=== PATIENT | male | born 1965 ===

== ENCOUNTER 2016-12-09 03:32 | Inpatient (IN) | payer MEDICAID ==
[2016-12-09] MEDS ORDERED: Multivitamin (MVI) 10 ML, Thiamine 100 MG, Folic Acid 1 MG in Sodium Chloride 0.9% 1,00... IV ONE (03:45)
--- NOTE | 2016-12-09 03:48 | C.PDOC ---
History Of Present Illness 51 year old male who presents to the ER with a complaint of palpitations and severe shakiness since approximately 21:00 last night. Patient has a Hx of ETOH abuse and reports he stopped drinking 2 days ago. Denies SOB, nausea, or vomiting. Chief Complaint (Nursing): Palpitations History Per: Patient History/Exam Limitations: no limitations Onset/Duration Of Symptoms: Hrs Current Symptoms Are (Timing): Still Present Associated Symptoms: denies: Chest Pain, Dyspnea, Dizziness, Blurred Vision, Focal Weakness, Headache Quality Of Symptoms: Rapid Heart Rate Recent travel outside of the [place] States: No Past Medical History Reviewed: Historical Data, Nursing Documentation, Vital Signs Vital Signs: Last Vital Signs Temp 98.0 F 12/09/16 03:38 Pulse 127 H 12/09/16 06:15 Resp 26 H 12/09/16 06:15 BP 157/99 H 12/09/16 06:15 Pulse Ox 99 12/09/16 06:23 - Medical History PMH: HTN, Hyperlipidemia Surgical History: Appendectomy - [facility] Procedures LAPAROSCOP APPENDECTOMY (10/14/13) Family History: States: Unknown Family Hx - Social History Hx Tobacco Use: No Hx Alcohol Use: Yes Hx Substance Use: No - Immunization History Hx Tetanus Toxoid Vaccination: No Hx Influenza Vaccination: Yes Hx Pneumococcal Vaccination: No Review Of Systems Constitutional: Negative for: Fever, Chills Cardiovascular: Positive for: Palpitations Respiratory: Negative for: Shortness of Breath Gastrointestinal: Negative for: Nausea, Vomiting Neurological: Positive for: Other (Tremulous) Physical Exam - Physical Exam Appears: Non-toxic, No Acute Distress, Agitated Skin: Normal Color, Warm, Dry Head: Atraumatic, Normacephalic Oral Mucosa: Moist Neck: Normal, Supple Chest: Symmetrical, No Tenderness Cardiovascular: Rhythm Regular (Tachycardic), No Murmur Respiratory: Normal Breath Sounds, No Rales, No Rhonchi, No Wheezing Gastrointestinal/Abdominal: Soft, No Tenderness Neurological/Psych: Oriented x3, Normal Speech, Normal Cognition ED Course And Treatment - Laboratory Results Result Diagrams: 12/09/16 03:55 12/09/16 03:55 ECG: Interpreted By Me, Viewed By Me ECG Rhythm: Sinus Tachycardia, R BBB ECG Interpretation: No Acute Changes, Abnormal Interpretation Of ECG: Sinus tachycardia, no acute changes, abnormal tracings. Rate From EC O2 Sat by Pulse Oximetry: 99 Pulse Ox Interpretation: Normal - Radiology CXR: Interpreted by Me, Viewed By Me CXR Interpretation: Yes: No Acute Disease, Other (normal chest film). No: Infiltrates, Cardiomegaly Progress Note: EKG, blood work, CXR, and urinalysis ordered. Ativan and IV fluids administered. Disposition Discussed With Dr.: Cheyenne Sandra Doctor Will See Patient In The: Hospital Counseled Patient/Family Regarding: Diagnosis - Disposition Disposition: HOSPITALIZED Disposition Time: 06:49 Condition: STABLE Forms: Scal[employer] (Irish) - POA Present On Arrival: None - Clinical Impression Clinical Impression: Alcohol withdrawal syndrome - Scribe Statement The provider has reviewed the documentation as recorded by the Scribremigio Morel All medical record entries made by the Scribe were at my direction and personally dictated by me. I have reviewed the chart and agree that the record accurately reflects my personal performance of the history, physical exam, medical decision making, and the department course for this patient. I have also personally directed, reviewed, and agree with the discharge instructions and disposition.
[2016-12-09 04:01] LABS: MEAN CORPUSCULAR HGB CONC 35.8 g/dL (33.0-37.0); MONO # 1.5 K/uL (0.0-0.8)
[2016-12-09 04:09] LABS: BASO % 0.1 % (0.0-2.0); HEMATOCRIT 48.2 % (35.0-51.0); LYMPH # 1.4 K/uL (1.0-4.3); LYMPH % 8.2 % (20.0-40.0); MEAN CELL VOLUME 97.1 fL (80.0-94.0); MEAN CORPUSCULAR HEMOGLOBIN 34.8 pg (27.0-31.0); MEAN PLATELET VOLUME 8.8 fL (7.2-11.7); MONO % 8.8 % (0.0-10.0); NRBC % 0.1 % (0.0-2.0); PLATELET COUNT 389 K/uL (130-400); RED CELL DISTRIBUTION WIDTH 14.5 % (11.5-14.5); WHITE BLOOD COUNT 17.4 K/uL (4.8-10.8)
[2016-12-09 04:14] LABS: ALCOHOL SERUM < 10 mg/dl (0-10); ALKALINE PHOSPHATASE 133 U/L (38-126); ALT/SGPT 66 U/L (21-72); AST/SGOT 83 U/L (17-59); BLOOD UREA NITROGEN 19 mg/dL (9-20); CHLORIDE 102 mmol/L (98-107); GFR AFRICAN-AMERICAN > 60; GLUCOSE,RANDOM 128 mg/dL (75-110); INR 1.1; POTASSIUM 4.2 mmol/L (3.6-5.2); SODIUM 136 mmol/L (132-148); TOTAL PROTEIN 7.9 g/dL (6.3-8.3)
[2016-12-09 04:32] LABS: CARBON DIOXIDE 9 mmol/L (22-30)
[2016-12-09 04:33] LABS: BILIRUBIN,TOTAL 1.6 mg/dL (0.2-1.3)
[2016-12-09] MEDS ORDERED: Dextrose 5%/0.9% NS 1,000 ML IV ONE ×2 (04:36→04:59)
[2016-12-09] MEDS ORDERED: Sodium Chloride 0.9% 0 ML ONE (04:58)
[2016-12-09 05:15] LABS: GRANULAR CAST 6 /lpf (0-1); RBC URINE < 1 /hpf (0-3); URINE BILIRUBIN NEGATIVE (NEGATIVE); URINE BLOOD NEGATIVE (NEGATIVE); URINE COLOR Amber (YELLOW); URINE GLUCOSE (UA) NORMAL (Normal); URINE KETONE 1+ mg/dL (NEGATIVE); URINE LEUKOCYTE ESTERASE NEG Leu/uL (Negative); URINE PROTEIN 1+ mg/dL (NEGATIVE); URINE UROBILINOGEN NORMAL mg/dL (0.2-1.0); WBC URINE 1 /hpf (0-5)
[2016-12-09 05:27] LABS: NEUTROPHIL 83 % (50-75); TOTAL CELLS COUNTED 100
[2016-12-09 05:33] LABS: ABG ALLEN TEST POS; ARTERIAL BLOOD HGB O2 SAT 91.3 % (95.0-98.0); CARBOXYHEMOGLOBIN 0 % (0.5-1.5); DRAW SITE R RAD; HHB 3.8 % (0.0-5.0); METHEMOGLOBIN 4.8 % (0.0-3.0)
[2016-12-09] MEDS ORDERED: Folic Acid 1 MG, Thiamine 100 MG, Multivitamin (MVI) 10 ML in Dextrose 5% In Water 1,00... IV SCH (07:15)
[2016-12-09] MEDS ORDERED: Iodixanol 320 MG/ML 100 ML BOTTLE IV ONE (07:50)
--- NOTE | 2016-12-09 08:16 | RAD ---
PROCEDURE: CHEST RADIOGRAPH, 1 VIEW HISTORY: Palpitations COMPARISON: None available. FINDINGS: LUNGS: Mild venous congestion. Right hilar prominence. Biapical pleural thickening with upper lobe granulomatous changes. PLEURA: No pneumothorax or pleural fluid seen. CARDIOVASCULAR: Normal. OSSEOUS STRUCTURES: No significant abnormalities. VISUALIZED UPPER ABDOMEN: Normal. OTHER FINDINGS: None. IMPRESSION: Mild venous congestion. Right hilar prominence. Biapical pleural thickening with upper lobe granulomatous changes.
--- NOTE | 2016-12-09 09:11 | CT ---
PROCEDURE: CT Chest with contrast (Pulmonary Angiogram) HISTORY: palpitation,chest discomfort COMPARISON: None available. TECHNIQUE: Axial computed tomography images were obtained of the chest in the pulmonary arterial phase of enhancement. Coronal and sagittal reformatted images were created and reviewed. Intravenous contrast dose: 100 cc of Visipaque Radiation dose: Total exam DLP = 402 mGy-cm. This CT exam was performed using one or more of the following dose reduction techniques: Automated exposure control, adjustment of the mA and/or kV according to patient size, and/or use of iterative reconstruction technique. FINDINGS: PULMONARY ARTERIES: Unremarkable. No pulmonary embolism. AORTA: No acute findings. No thoracic aortic aneurysm. LUNGS: Unremarkable. No nodule, mass or pulmonary consolidation. PLEURAL SPACES: Unremarkable. No effusion or pneuomothorax. HEART: Unremarkable. No cardiomegaly. No significant pericardial effusion. LYMPH NODES: No lymphadenopathy. BONES, CHEST WALL: Unremarkable. No fracture or destructive lesion OTHER FINDINGS: Unremarkable. IMPRESSION: Unremarkable CT pulmonary angiogram. No pulmonary embolus.
[2016-12-09] MEDS: Pantoprazole 40 mg EC Tab PO SCH (09:28)
[2016-12-09] MEDS: Enoxaparin 40 mg Syringe SC SCH (09:28)
[2016-12-09] MEDS ORDERED: Folic Acid 1 MG, Thiamine 100 MG, Multivitamin (MVI) 10 ML in Dextrose 5% In Water 1,00... IV ONE (11:15)
[2016-12-09] MEDS ORDERED: Multiple Vitamins Tab PO SCH (12:15)
--- NOTE | 2016-12-09 13:54 | PCM.PSYCH ---
Initial Psychiatric Evaluation - Initial Psychiatric Evaluation Type of Admission: Voluntary Legal Status: Capacity Chief Complaint (in patient's own words): Psych consult called for hx of alcohol use History of Present Illness and Precipitating Events: Patient is a 50 year old male, single with no children, who lives alone in [place] and works as a sales associate cashier at [employer]. Consult was requested for his alcohol wdw He states that he came to the hospital because he was drinking alcohol 2 days ago, and yesterday experienced shakes, vomiting, chest pain, heavy breathing, and wasn't able to sleep. He wasn't able to take his blood pressure medication so he was worried he would have a stroke, and thus came to the hospital. Patient states that he drinks on and off. Two days ago, he had 4 "vodka juices" and a couple of beers. He states that sometimes he drinks, gives it up and then starts drinking again. He feels that he has the ability to stop and states that he once stopped for 2 weeks. However he also fulfills criteria for alcohol use d /o. Patient has never been to detox or rehab in the past. He denies use of drugs or tobacco. Patient states that he's recently been experiencing stress at his job because his hours are being cut and he's looking for another job elsewhere. Additionally , he states that his boyfriend of 2 years was deported in July. Patient states that his boyfriend left voluntarily and gave us his passport. They still speak via phone and Facetime and he states that his boyfriend is attempting to come back to the country, but the future is unknown. He feels anxious. Psychiatric history: denies Drugs: denies Tobacco: denies ETOH: see above Medical history: HTN hypercholesterolemia Family history: no psych illnesses or substance use Social: Single, boyfriend of 2 years now lives out of country No children Lives alone in [place] Works as sales associate cashier at [employer] Current Medications: Active Medications Generic Name Dose Route Start Last Admin Trade Name Freq PRN Reason Stop Dose Admin Chlordiazepoxide 25 mg 12/09/16 12:15 Librium PO Q4H PRN Alcohol Withdrawal Chlordiazepoxide 0 mg 12/09/16 18:00 Librium PO 12/13/16 17:59 Q6 ADRIA Taper Enoxaparin Sodium 40 mg 12/09/16 10:00 12/09/16 09:28 Lovenox SC 40 mg DAILY ADRIA Administration Folic Acid 1 mg 12/10/16 10:00 Folic Acid PO DAILY ADRIA Folic Acid 1 mg/ Thiamine HCl 1,011.2 mls @ 60 mls/hr 12/09/16 11:15 100 mg/ Multivitamins/Vitamin IV 12/10/16 04:06 C 10 ml/ Dextrose .[id number] Multivitamins 1 tab 12/10/16 10:00 Hexavitamin PO DAILY ADRIA Pantoprazole Sodium 40 mg 12/09/16 10:00 12/09/16 09:28 Protonix Ec Tab PO 40 mg DAILY ADRIA Administration Thiamine HCl 100 mg 12/10/16 10:00 Vitamin B1 Tab PO DAILY ADRIA Trazodone HCl 50 mg 12/09/16 12:15 Desyrel PO HS PRN Insomnia Past Psychiatric History - Past Psychiatric History Pertinent Medical Hx (Current Medical&Sleep Prob, Allergies): Allergies Allergy/AdvReac Type Severity Reaction Status Date / Time Penicillins Allergy RASH Verified 12/09/16 03:42 Losartan 50 mg PO DAILY 07/08/15 Hydrochlorothiazide [Microzide] 12.5 mg PO DAILY 12/09/16 Pravastatin Sodium [Pravachol] 20 mg PO HS 12/09/16 Review of Systems - Neurological Neurological: UNREMARKABLE - Psychiatric Psychiatric: Abnormal Sleep Pattern, Anxiety Mental Status Examination - Personal Presentation Personal Presentation: Looks stated age - Affect Affect: Constricted - Motor Activity Motor Activity: Calm - Speech Speech: Organized - Mood Mood: Depressed, Anxious - Formal Thought Process Formal Thought Process: No Impairment - Obsessions/Compulsions Obsessions: No Compulsions: No - Cognitive Functions Orientation: Person, Place, Situation, Time Sensorium: Alert - Risk Risk: Seizure, Withdrawal - Strength & Assets Inventory Strength & Assets Inventory: Employment status, Cooperative DSM 5 DX - DSM 5 DSM 5 Diagnosis: Alcohol use d/o - moderate Alcohol withdrawal r/o anxiety d/o - Recommended/Plan of Treatment Treatment Recommendations and Plan of Treatment: Alcohol use disorder CBT and [place] psychoeducation supportive therapy, individual therapy Alcohol withdrawal Librium 25mg PO Q4H PRN Librium taper gabapentin 33 min
[2016-12-09 16:59] LABS: CHLORIDE 105 mmol/L (98-107); SODIUM 133 mmol/L (132-148)
[2016-12-09 17:00] LABS: POTASSIUM 3.7 mmol/L (3.6-5.2)
[2016-12-09 17:02] LABS: ALKALINE PHOSPHATASE 85 U/L (38-126); AST/SGOT 101 U/L (17-59); BILIRUBIN,TOTAL 1.5 mg/dL (0.2-1.3); BLOOD UREA NITROGEN 14 mg/dL (9-20); CARBON DIOXIDE 18 mmol/L (22-30); GFR AFRICAN-AMERICAN > 60; TOTAL PROTEIN 6.1 g/dL (6.3-8.3)
[2016-12-09 17:03] LABS: ALB/GLOB RATIO 1.3 (1.0-2.1); ALT/SGPT 56 U/L (21-72); CALCIUM 7.7 mg/dl (8.6-10.4); GLUCOSE,RANDOM 109 mg/dL (75-110)
--- NOTE | 2016-12-09 21:11 | CP.PCM.HP ---
Past Patient History - Infectious Disease Hx of Infectious Diseases: None - Past Medical History & Family History Past Medical History?: No - Past Social History Smoking Status: Never Smoked - CARDIAC Hx Hypertension: Yes - PULMONARY Hx Respiratory Disorders: No - NEUROLOGICAL Hx Neurological Disorder: No - HEENT Hx HEENT Problems: No - RENAL Hx Chronic Kidney Disease: No - ENDOCRINE/METABOLIC Hx Endocrine Disorders: No - HEMATOLOGICAL/ONCOLOGICAL Hx Blood Disorders: No - INTEGUMENTARY Hx Dermatological Problems: No - MUSCULOSKELETAL/RHEUMATOLOGICAL Hx Musculoskeletal Disorders: No Hx Falls: Yes - GASTROINTESTINAL Hx Gastrointestinal Disorders: No - GENITOURINARY/GYNECOLOGICAL Hx Genitourinary Disorders: No - PSYCHIATRIC Hx Substance Use: No - SURGICAL HISTORY Hx Appendectomy: Yes - ANESTHESIA Hx Anesthesia: Yes Hx Anesthesia Reactions: No Hx Malignant Hyperthermia: No Meds Allergies/Adverse Reactions: Allergies Allergy/AdvReac Type Severity Reaction Status Date / Time Penicillins Allergy RASH Verified 12/09/16 03:42 Physical Exam - Constitutional Appears: Well - Head Exam Head Exam: ATRAUMATIC, NORMAL INSPECTION, NORMOCEPHALIC - Eye Exam Eye Exam: EOMI, Normal appearance, PERRL Pupil Exam: NORMAL ACCOMODATION, PERRL - ENT Exam ENT Exam: Mucous Membranes Moist, Normal Exam - Neck Exam Neck exam: Positive for: Normal Inspection - Respiratory Exam Respiratory Exam: Decreased Breath Sounds - Cardiovascular Exam Cardiovascular Exam: REGULAR RHYTHM, +S1, +S2 - GI/Abdominal Exam GI & Abdominal Exam: Diminished Bowel Sounds, Soft - Rectal Exam Rectal Exam: Deferred Results - Vital Signs Recent Vital Signs: Last Vital Signs Temp 97.8 F 12/09/16 15:49 Pulse 90 12/09/16 16:00 Resp 18 12/09/16 15:49 BP 127/77 12/09/16 15:49 Pulse Ox 97 12/09/16 15:49 - Labs Result Diagrams: 12/09/16 03:55 12/09/16 16:33 Labs: Laboratory Results - last 24 hr 12/09/16 16:33 Sodium 133 Potassium 3.7 Chloride 105 Carbon Dioxide 18 L Anion Gap 14 BUN 14 Creatinine 0.9 Est GFR ( Amer) > 60 Est GFR (Non-Af Amer) > 60 Random Glucose 109 Calcium 7.7 L Total Bilirubin 1.5 H AST 101 H D ALT 56 Alkaline Phosphatase 85 Total Protein 6.1 L Albumin 3.4 L Globulin 2.7 Albumin/Globulin Ratio 1.3
[2016-12-10] MEDS: Multiple Vitamins Tab PO SCH (10:16)
[2016-12-10] MEDS: Pantoprazole 40 mg EC Tab PO SCH (10:16)
[2016-12-10] MEDS: Enoxaparin 40 mg Syringe SC SCH (10:16)
--- NOTE | 2016-12-10 13:20 | CARD ---
APPROVED REPORT EKG Measurement Heart [id number] <Conclusion> Sinus tachycardia Possible Left atrial enlargement Right superior axis deviation Incomplete right bundle branch block Right ventricular hypertrophy Abnormal ECG
[2016-12-10 17:16] LABS: ALB/GLOB RATIO 1.1 (1.0-2.1); ALKALINE PHOSPHATASE 71 U/L (38-126); ALT/SGPT 61 U/L (21-72); AST/SGOT 89 U/L (17-59); BILIRUBIN,TOTAL 1.1 mg/dL (0.2-1.3); BLOOD UREA NITROGEN 10 mg/dL (9-20); CALCIUM 8.2 mg/dl (8.6-10.4); CARBON DIOXIDE 23 mmol/L (22-30); CHLORIDE 103 mmol/L (98-107); GFR AFRICAN-AMERICAN > 60; GLUCOSE,RANDOM 90 mg/dL (75-110); MAGNESIUM 1.9 mg/dL (1.6-2.3); POTASSIUM 3.6 mmol/L (3.6-5.2); SODIUM 136 mmol/L (132-148); TOTAL PROTEIN 5.8 g/dL (6.3-8.3)
--- NOTE | 2016-12-10 18:53 | CP.PCM.PN ---
Subjective - Date & Time of Evaluation Date of Evaluation: 12/10/16 Time of Evaluation: 10:20 - Subjective Subjective: clinically same Objective - Vital Signs/Intake and Output Vital Signs (last 24 hours): Temp Pulse Resp BP Pulse Ox 97.9 F 61 20 133/79 95 12/10/16 15:15 12/10/16 15:15 12/10/16 15:15 12/10/16 15:15 12/10/16 15:15 Intake and Output: 12/10/16 12/10/16 06:59 18:59 Intake Total 320 870 Output Total 600 Balance -280 870 - Medications Medications: Current Medications Chlordiazepoxide (Librium) 25 mg PO Q4H PRN PRN Reason: Alcohol Withdrawal Last Admin: 12/09/16 14:21 Dose: 25 mg Chlordiazepoxide (Librium) 25 mg PO TID [facility] PRN Reason: Taper Stop: 12/13/16 17:59 Last Admin: 12/10/16 17:52 Dose: 25 mg Enoxaparin Sodium (Lovenox) 40 mg SC DAILY [facility] Last Admin: 12/10/16 10:16 Dose: 40 mg Folic Acid (Folic Acid) 1 mg PO DAILY [facility] Last Admin: 12/10/16 10:16 Dose: 1 mg Gabapentin (Neurontin) 100 mg PO TID [facility] Last Admin: 12/10/16 13:35 Dose: 100 mg Multivitamins (Hexavitamin) 1 tab PO DAILY [facility] Last Admin: 12/10/16 10:16 Dose: 1 tab Pantoprazole Sodium (Protonix Ec Tab) 40 mg PO DAILY [facility] Last Admin: 12/10/16 10:16 Dose: 40 mg Pneumococcal Polyvalent Vaccine (Pneumovax 23 Vaccine) 0.5 ml IM .ONCE ONE Stop: 12/11/16 10:01 Thiamine HCl (Vitamin B1 Tab) 100 mg PO DAILY [facility] Last Admin: 12/10/16 10:16 Dose: 100 mg Trazodone HCl (Desyrel) 50 mg PO HS PRN PRN Reason: Insomnia - Labs Labs: 12/10/16 17:00 PT 12.0 SECONDS (9.7-12.2) 12/09/16 03:55 INR 1.1 12/09/16 03:55 APTT 34 SECONDS (21-34) 12/09/16 03:55
[2016-12-11 08:08] LABS: BASO % 0.7 % (0.0-2.0); EOS % 1.4 % (0.0-4.0); HEMATOCRIT 39.2 % (35.0-51.0); LYMPH # 0.8 K/uL (1.0-4.3); LYMPH % 25.1 % (20.0-40.0); MEAN CELL VOLUME 96.3 fL (80.0-94.0); MEAN CORPUSCULAR HEMOGLOBIN 32.9 pg (27.0-31.0); MEAN CORPUSCULAR HGB CONC 34.2 g/dL (33.0-37.0); MEAN PLATELET VOLUME 8.4 fL (7.2-11.7); MONO # 0.4 K/uL (0.0-0.8); MONO % 11.9 % (0.0-10.0); NRBC % 0.3 % (0.0-2.0)
[2016-12-11 08:10] LABS: CHLORIDE 107 mmol/L (98-107); POTASSIUM 3.5 mmol/L (3.6-5.2); SODIUM 139 mmol/L (132-148); WHITE BLOOD COUNT 3.3 K/uL (4.8-10.8)
[2016-12-11 08:12] LABS: ALB/GLOB RATIO 1.2 (1.0-2.1); AST/SGOT 84 U/L (17-59); BILIRUBIN,TOTAL 0.9 mg/dL (0.2-1.3); BLOOD UREA NITROGEN 10 mg/dL (9-20); CARBON DIOXIDE 24 mmol/L (22-30); GFR AFRICAN-AMERICAN > 60
[2016-12-11 08:13] LABS: ALKALINE PHOSPHATASE 72 U/L (38-126); ALT/SGPT 68 U/L (21-72); CALCIUM 7.9 mg/dl (8.6-10.4); GLUCOSE,RANDOM 77 mg/dL (75-110)
[2016-12-11] MEDS ORDERED: Pneumococcal 23-Valent Vaccine IM ONE (10:00)
[2016-12-11] MEDS: Multiple Vitamins Tab PO SCH (10:44)
[2016-12-11] MEDS: Enoxaparin 40 mg Syringe SC SCH (10:44)
[2016-12-11] MEDS: Pantoprazole 40 mg EC Tab PO SCH (10:44)
--- NOTE | 2016-12-11 11:44 | CP.PCM.PN ---
<Neto Garcia - Last Filed: 12/11/16 11:44> Subjective - Date & Time of Evaluation Date of Evaluation: 12/11/16 Time of Evaluation: 11:45 - Subjective Subjective: Progress note. Attending: Dr. Sandra Pt seen and examined at bedside. No acute distress. No current complaints. Denies fevers, chills, vomiting, diarrhea. Pt is hemodynamically stable. Objective - Vital Signs/Intake and Output Vital Signs (last 24 hours): Temp Pulse Resp BP Pulse Ox 98 F 47 L 18 131/82 96 12/11/16 08:00 12/11/16 08:00 12/11/16 08:00 12/11/16 08:00 12/11/16 08:00 - Medications Medications: Current Medications Chlordiazepoxide (Librium) 25 mg PO Q4H PRN PRN Reason: Alcohol Withdrawal Last Admin: 12/09/16 14:21 Dose: 25 mg Chlordiazepoxide (Librium) 25 mg PO TID [facility] PRN Reason: Taper Stop: 12/13/16 17:59 Last Admin: 12/11/16 10:44 Dose: 25 mg Enoxaparin Sodium (Lovenox) 40 mg SC DAILY [facility] Last Admin: 12/11/16 10:44 Dose: 40 mg Folic Acid (Folic Acid) 1 mg PO DAILY [facility] Last Admin: 12/11/16 10:44 Dose: 1 mg Gabapentin (Neurontin) 100 mg PO TID [facility] Last Admin: 12/11/16 10:44 Dose: 100 mg Potassium Chloride (Potassium Chloride 20 Meq/100 Ml) 20 meq in 100 mls @ 50 mls/hr IVPB ONCE ONE Stop: 12/11/16 12:47 Multivitamins (Hexavitamin) 1 tab PO DAILY [facility] Last Admin: 12/11/16 10:44 Dose: 1 tab Pantoprazole Sodium (Protonix Ec Tab) 40 mg PO DAILY [facility] Last Admin: 12/11/16 10:44 Dose: 40 mg Thiamine HCl (Vitamin B1 Tab) 100 mg PO DAILY [facility] Last Admin: 12/11/16 10:44 Dose: 100 mg Trazodone HCl (Desyrel) 50 mg PO HS PRN PRN Reason: Insomnia - Labs Labs: 12/11/16 07:42 12/11/16 07:42 PT 12.0 SECONDS (9.7-12.2) 12/09/16 03:55 INR 1.1 12/09/16 03:55 APTT 34 SECONDS (21-34) 12/09/16 03:55 - Constitutional Appears: Non-toxic, No Acute Distress - Head Exam Head Exam: ATRAUMATIC, NORMAL INSPECTION, NORMOCEPHALIC - Eye Exam Eye Exam: EOMI - ENT Exam ENT Exam: Mucous Membranes Moist - Neck Exam Neck Exam: Full ROM, Normal Inspection - Respiratory Exam Respiratory Exam: NORMAL BREATHING PATTERN. absent: Respiratory Distress - Cardiovascular Exam Cardiovascular Exam: +S1, +S2 - GI/Abdominal Exam GI & Abdominal Exam: Soft, Normal Bowel Sounds. absent: Tenderness - Extremities Exam Extremities Exam: Full ROM, Normal Inspection - Back Exam Back Exam: NORMAL INSPECTION - Neurological Exam Neurological Exam: Alert, Awake, CN II-XII Intact, Oriented x3 - Psychiatric Exam Psychiatric exam: Normal Affect, Normal Mood - Skin Skin Exam: Dry, Intact, Normal Color, Warm Assessment and Plan - Assessment and Plan (Free Text) Assessment: This is a 51 yo male with past medical hx of alcohol abuse, HTN, and HLD presenting for alcohol withdrawal 1. Alcohol abuse/withdrawal -librium 25 PO q 4 PRN -librium 25 PO TID ADRIA -folic acid 1 mg po daily -gabapentin 100 po tid -continue multivitamins -thiamine 100 daily 2. Insomnia -continue trazodone PO HS 3. Hx of HTN -continue to monitor -blood pressure well controlled at present 4. Hx of HLD -continue to monitor 5. GI/DVT ppx -lovenox daily -protonix daily discussed with Dr. Sandra <Eula Sandra S - Last Filed: 12/11/16 23:47> Objective - Vital Signs/Intake and Output Vital Signs (last 24 hours): Temp Pulse Resp BP Pulse Ox 97.9 F 61 20 123/82 95 12/11/16 15:49 12/11/16 15:49 12/11/16 15:49 12/11/16 15:49 12/11/16 15:49 Intake and Output: 12/11/16 12/12/16 18:59 06:59 Intake Total 700 Balance 700 - Labs Labs: 12/11/16 07:42 12/11/16 07:42 PT 12.0 SECONDS (9.7-12.2) 12/09/16 03:55 INR 1.1 12/09/16 03:55 APTT 34 SECONDS (21-34) 12/09/16 03:55 Attending/Attestation - Attestation I have personally seen and examined this patient.: Yes I have fully participated in the care of the patient.: Yes I have reviewed all pertinent clinical information, including history, physical exam and plan: Yes Notes (Text): 12/11/16 23:46 Patient is okay patient is not in delirium tremens patient is to be discharged on thiamine MVI gabapentin continue her trazodone from the home patient for the discharge patient advised to drink orange juice as potassium was on the lower side patient agreed and willing to go home Patient seen and discussed with the staff and the resident
--- NOTE | 2016-12-11 15:32 | PCM.PYCHPN ---
Psychiatric Progress Note - Psychiatric Progress Note Patient seen today, length of contact: 15 minutes Patient Chief Complaint: "I'm doing good" Problems Identified/Issues Discussed: The patient was seen, chart reviewed, case discussed with staff. The patient is compliant with medications and reports no side effects. Patient states that he's been sleeping well. He denies withdrawal symptoms including shakes, sweats and pain. No new symptoms, patient is improving. After care discussed, support and psychoeducation given. Medication Change: Yes (detox changes daily) Medical Record Reviewed: Yes Mental Status Examination - Cognitive Function Orientation: Person, Place, Situation, Time Memory: Intact Attention: WNL Concentration: WNL Association: WNL Fund of Knowledge: WNL - Mood Mood: Anxious - Affect Affect: Constricted - Speech Speech: Soft - Formal Thought Process Formal Thought Process: No Impairment - Suicidal Ideation Suicidal Ideation: No - Homicidal Ideation Homicidal Ideation: No Goal/Treatment Plan - Goal/Treatment Plan Progress Toward Problem(s) and Goals/Treatment Plan: Alcohol use disorder CBT and [place] psychoeducation supportive therapy, individual therapy Alcohol withdrawal Librium 25mg PO Q4H PRN Librium taper gabapentin
[2016-12-11 15:52] VITALS: BP 123/82; PULSE 61; RESP 20; TEMP 97.9; O2SAT 95
== END 2016-12-11 17:59 | disposition home or self-care (01) | DRG 751 ==
LOC: C.ER 03:32 → C.9E 06:50 → C.5S 07:27
PROVIDERS: ADMIT Internal Medicine Nephrology; ATTEND Internal Medicine Nephrology
DX: F10.230 Alcohol dependence with withdrawal, uncomplicated (principal); I10 Essential (primary) hypertension; R00.2 Palpitations; E78.5 Hyperlipidemia, unspecified; G47.00 Insomnia, unspecified; F41.9 Anxiety disorder, unspecified; Z90.49 Acquired absence of other specified parts of digestive tract; Z91.81 History of falling

== ENCOUNTER 2017-04-08 14:20 | Inpatient (IN) | payer MEDICAID ==
[2017-04-08 14:29] VITALS: BMI 26.6
--- NOTE | 2017-04-08 14:42 | C.PDOC ---
History Of Present Illness 51 y/o male with PMHx of high cholesterol presents to ED requesting ETOH detox. Patient states his last drink was yesterday at 4pm in the afternoon and reports he has tried to detox on his own but cannot secondary to feeling nauseous and shaking sensation. Patient states he is compliant with medication and denies current chest pain, sob, vomiting, headache or any other complaints at this at this time. Time Seen by Provider: 04/08/17 14:30 Chief Complaint (Nursing): Substance Abuse History Per: Patient History/Exam Limitations: no limitations Onset/Duration Of Symptoms: Days Current Symptoms Are (Timing): Still Present Suicide/Self Injury Attempted (Context): None Modifying Factor(s): Alcohol Past Medical History Reviewed: Historical Data, Nursing Documentation, Vital Signs Vital Signs: Last Vital Signs Temp 98.2 F 04/08/17 14:29 Pulse 119 H 04/08/17 14:29 Resp 18 04/08/17 14:29 BP 95/66 L 04/08/17 14:29 Pulse Ox 98 04/08/17 16:32 - Medical History PMH: Depression, HTN, Hypercholesterolemia, Hyperlipidemia Surgical History: Appendectomy - [facility] Procedures LAPAROSCOP APPENDECTOMY (10/14/13) Family History: States: No Known Family Hx - Social History Hx Tobacco Use: No Hx Alcohol Use: Yes Hx Substance Use: No - Immunization History Hx Tetanus Toxoid Vaccination: Yes Hx Influenza Vaccination: Yes Hx Pneumococcal Vaccination: Yes Review Of Systems Constitutional: Negative for: Fever, Chills Eyes: Negative for: Vision Change Cardiovascular: Negative for: Chest Pain Respiratory: Negative for: Shortness of Breath Gastrointestinal: Negative for: Nausea, Vomiting Skin: Negative for: Rash Psych: Negative for: Anxiety, Withdrawal Physical Exam - Physical Exam Appears: Non-toxic, No Acute Distress Skin: Normal Color, Warm, Dry, No Rash Head: Atraumatic, Normacephalic Eye(s): bilateral: Normal Inspection Oral Mucosa: Moist Neck: Normal ROM, Supple Cardiovascular: Rhythm Regular Respiratory: Normal Breath Sounds, No Rales, No Rhonchi, No Wheezing Gastrointestinal/Abdominal: Soft, No Tenderness, No Guarding, No Rebound Back: No CVA Tenderness Extremity: Normal ROM, Capillary Refill (<2 seconds) Neurological/Psych: Oriented x3 ED Course And Treatment - Laboratory Results Result Diagrams: 04/08/17 15:58 04/08/17 15:58 Lab Interpretation: No Acute Changes Interpretation Of Abnormal: K+ 2.8 corrected with oral Kdur. ECG: Interpreted By Me ECG Rhythm: Sinus Rhythm ECG Interpretation: No Acute Changes O2 Sat by Pulse Oximetry: 98 (RA) Pulse Ox Interpretation: Normal Progress Note: Patient is medically cleared for detox admisison. Medical Decision Making Medical Decision Making: Progress: Patient is pre screened for detox Disposition - Disposition Disposition: HOSPITALIZED Disposition Time: 17:21 Condition: STABLE - POA Present On Arrival: None - Clinical Impression Clinical Impression: Alcohol dependence - Scribe Statement The provider has reviewed the documentation as recorded by the Scribe Alexandra Briones All medical record entries made by the Emmieibe were at my direction and personally dictated by me. I have reviewed the chart and agree that the record accurately reflects my personal performance of the history, physical exam, medical decision making, and the department course for this patient. I have also personally directed, reviewed, and agree with the discharge instructions and disposition.
[2017-04-08 16:02] LABS: BASO % 0.4 % (0.0-2.0); EOS # 0.1 K/uL (0.0-0.7); EOS % 1.5 % (0.0-4.0); HEMOGLOBIN 14.2 g/dL (12.0-18.0); LYMPH % 21.2 % (20.0-40.0); MEAN CELL VOLUME 90.6 fL (80.0-94.0); MEAN CORPUSCULAR HEMOGLOBIN 31.3 pg (27.0-31.0); MEAN CORPUSCULAR HGB CONC 34.6 g/dL (33.0-37.0); MEAN PLATELET VOLUME 7.9 fL (7.2-11.7); MONO # 0.4 K/uL (0.0-0.8); MONO % 9.3 % (0.0-10.0); NEUT # 3.2 K/uL (1.8-7.0); NEUT % 67.6 % (50.0-75.0); RBC 4.53 Mil/uL (4.40-5.90); RED CELL DISTRIBUTION WIDTH 15.4 % (11.5-14.5); WHITE BLOOD COUNT 4.7 K/uL (4.8-10.8)
[2017-04-08 16:11] LABS: URINE BACTERIA RARE (<OCC); URINE BILIRUBIN NEGATIVE (NEGATIVE); URINE BLOOD NEGATIVE (NEGATIVE); URINE CLARITY Clear (Clear); URINE COLOR Yellow (YELLOW); URINE GLUCOSE (UA) NORMAL (Normal); URINE LEUKOCYTE ESTERASE NEG Leu/uL (Negative); URINE NITRATE NEGATIVE (NEGATIVE); URINE PROTEIN NEGATIVE (NEGATIVE); URINE UROBILINOGEN NORMAL mg/dL (0.2-1.0)
[2017-04-08 16:17] LABS: ALB/GLOB RATIO 1.2 (1.0-2.1); ALBUMIN 4.1 g/dL (3.5-5.0); ALT/SGPT 46 U/L (21-72); AST/SGOT 79 U/L (17-59); BLOOD UREA NITROGEN 14 mg/dL (9-20); GFR AFRICAN-AMERICAN > 60; GFR NON-AFRICAN AMERICAN > 60
[2017-04-08] MEDS ORDERED: Potassium Chloride 20 mEq ER Tab PO STA (16:25)
[2017-04-08 16:28] LABS: BARBITURATES, UR NEGATIVE (NEGATIVE); BENZODIAZEPINES, UR NEGATIVE (NEGATIVE); OPIATES, UR NEGATIVE (NEGATIVE); PHENCYCLIDINE, UR NEGATIVE (NEGATIVE)
[2017-04-08] MEDS ORDERED: Potassium Chloride 20 mEq ER Tab PO ONE ×2 (16:45→20:00)
--- NOTE | 2017-04-08 18:37 | PCM.BM ---
<Ayesha Mccollum - Last Filed: 04/08/17 18:35> Treatment Plan Problems - Problems identified on initial assessmt Alcohol abuse Date Initiated: 04/08/17 Time Initiated: 18:30 Assessment reference: NA Status: Active Treatment assets and liabiliti Patient Assests: cooperative, ADL independent, good support system Patient Liabilities: substance abuse - Milieu Protocol Maintain good personal hygiene: daily Encourage regular showers, daily Remind patient to perform daily oral care, daily Assist patient to perform ADL's Conduct patient checks and document Observation sheet: Q15 minutes Maintain personal safety: every shift Educate patient to report safety concerns to staff, every shift Monitor environment for contraband/sharps Medication safety: Monitor for expected outcome, potential side effects: every shift, Assess barriers to learning: every shift, Assess readiness for medication education: every shift <Ria Veras - Last Filed: 04/09/17 13:44> Family Contact Family involvement: Famliy/SO not involved Family contact: Patient declines to allow family contact at present - Goals for Treatment Patient goals for treatment: Complete detox and attend o/p in [place] while resuming employment at [employer]. Discharge/Continuing Care - Education Needs Education Needs: Patient Medication, Patient Diagnosis/Disease Process, Patient Coping Skills, Patient Anger Management skills, Patient Placement options, Patient Community resources - Discharge Discharge Criteria: No longer exhibiting s/s of withdrawal, Reduction of target symptoms Discharge to:: Home - Treatment Team Participation Patient/Family/SO Statement: 04/09/17 13:45 "I wanna go to outpatient." Discussed with Family/SO: No Was Patient/Family/SO present at Treatment Team Meeting: Yes <Maris Gunderson - Last Filed: 04/10/17 14:46> - Diagnosis (1) Alcohol dependence Status: Acute Interventions: 04/10/17 14:46 * Assess 7x/week regarding severity of withdrawal * Educate regarding risks, benefits, side effects and alternatives of medications * Use Motivational Interviewing for abstinence * Use CBT for relapse prevention * Medication management for withdrawal symptoms * Encourage medication assisted treatment *
[2017-04-09] MEDS: Multiple Vitamins Tab PO SCH (09:27)
--- NOTE | 2017-04-09 13:39 | PCM.PSYCH ---
Initial Psychiatric Evaluation - Initial Psychiatric Evaluation Type of Admission: Voluntary Legal Status: Capacity Chief Complaint (in patient's own words): "I want to detox from alcohol " History of Present Illness and Precipitating Events: The pt seen, chart reviewed, case discussed with staff Patient is a 51 year old male. He is single with no children and has no contact with his family. Patient states he currently lives alone. 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 Patient was admitted to detox for alcohol use. Patient states he consumes 5-6 "vodka with juice" drinks daily. This volume began over the past year. Patient reports he noticed a problem with drinking during his early 40s. He states this is his first time at a detox program and wants to get clean. He states he has tried on his own but the withdrawal symptoms are too much for him to handle. He denies any legal issues at this time. His plan after detox is to enter an outpatient program in [place]. Psych Hx: Denies Family Psych Hx: Denies PMH: HTN and hyperlipidemia Current Medications: Active Medications Generic Name Dose Route Start Last Admin Trade Name Gaby PRN Reason Stop Dose Admin Chlordiazepoxide 25 mg 04/09/17 00:00 04/09/17 13:04 Librium PO 04/12/17 23:59 25 mg Q6 ADRIA Administration Taper Chlordiazepoxide 25 mg 04/08/17 20:26 04/09/17 09:30 Librium PO 25 mg Q4H PRN Administration Alcohol Withdrawal Clonidine HCl 0.1 mg 04/08/17 19:26 Catapres PO Q4H PRN Symptoms of alcohol withdrawl Folic Acid 1 mg 04/09/17 10:00 04/09/17 09:27 Folic Acid PO 1 mg DAILY ADRIA Administration Gabapentin 300 mg 04/09/17 14:00 Neurontin PO TID ADRIA Hydrochlorothiazide 12.5 mg 04/09/17 11:00 04/09/17 11:03 Microzide PO 12.5 mg DAILY ADRIA Administration Losartan Potassium 50 mg 04/09/17 11:00 04/09/17 11:02 Cozaar PO 50 mg DAILY ADRIA Administration Multivitamins 1 tab 04/09/17 10:00 04/09/17 09:27 Hexavitamin PO 1 tab DAILY ADRIA Administration Rosuvastatin Calcium 10 mg 04/09/17 22:00 Crestor PO HS ADRIA Thiamine HCl 100 mg 04/09/17 10:00 04/09/17 09:27 Vitamin B1 Tab PO 100 mg DAILY ADRIA Administration Past Psychiatric History - Past Psychiatric History Pertinent Medical Hx (Current Medical&Sleep Prob, Allergies): Allergies Allergy/AdvReac Type Severity Reaction Status Date / Time Penicillins Allergy RASH Verified 04/08/17 14:28 Losartan [Cozaar] 50 mg PO #0 07/08/15 Hydrochlorothiazide [Microzide] 12.5 mg PO DAILY 12/09/16 Pravastatin Sodium [Pravachol] 20 mg PO HS 12/09/16 Multivitamins [Hexavitamin] 1 tab PO DAILY #30 tab 12/11/16 Thiamine [Vitamin B1 Tab] 100 mg PO DAILY #30 tab 12/11/16 Review of Systems - Review of Systems All systems: reviewed and no additional remarkable complaints except - Constitutional Constitutional: Sweats - Musculoskeletal Musculoskeletal: absent: Muscle Cramps - Neurological Neurological: Tremor - Psychiatric Psychiatric: absent: Anxiety, Auditory Hallucinations, Hallucinations, Homicidal Ideation, Irritability, Paranoia, Suicidal Ideation, Visual Hallucinations Mental Status Examination - Personal Presentation Personal Presentation: Looks stated age - Affect Affect: Broad - Motor Activity Motor Activity: Calm - Reliability in Providing Information Reliability in Providing Information: Good - Speech Speech: Organized - Mood Mood: Neutral - Formal Thought Process Formal Thought Process: No Impairment - Cognitive Functions Orientation: Person, Place, Situation, Time Sensorium: Alert Attention/Concentration: Attentive Abstract Thinking: [place] Estimate of Intelligence: Average - Risk Risk: Withdrawal, Diminished functioning DSM 5 DX - DSM 5 DSM 5 Diagnosis: Alcohol use d/o- severe Alcohol withdrawal - Recommended/Plan of Treatment Treatment Recommendations and Plan of Treatment: Librium started for alcohol detox As needed medications Attend groups and activities Supportive therapy and psychoeducation [place] for abstinence CBT for relapse prevention Encourage MAT Refer to rehab or IOP Attend self-help groups as well 34 min
--- NOTE | 2017-04-09 14:57 | CARD ---
APPROVED REPORT EKG Measurement Heart [id number] 140P36 [id number] <Conclusion> Normal sinus rhythm Left axis deviation Abnormal ECG
--- NOTE | 2017-04-09 15:01 | CARD ---
APPROVED REPORT EKG Measurement Heart [id number] 148P17 [id number] <Conclusion> Normal sinus rhythm Pulmonary disease pattern Left anterior fascicular block Cannot rule out Inferior infarct (masked by fascicular block?), age undetermined Abnormal ECG
[2017-04-10] MEDS: Multiple Vitamins Tab PO SCH (09:49)
--- NOTE | 2017-04-10 13:34 | PCM.PYCHPN ---
Psychiatric Progress Note - Psychiatric Progress Note Patient seen today, length of contact: 16 min Patient Chief Complaint: "I wasn't able to sleep last night" Problems Identified/Issues Discussed: The pt is seen, chart reviewed, case discussed with staff. Patient states he has been reading up on possible treatments for alcohol use d/ o. He wishes to start vivitrol. He also states he could not sleep well during the night. The pt is compliant with medications and reports no side-effects. Symptoms are improving but needs more time to stabilize. After care discussed, support and psychoeducation given. Medication Change: Yes Medical Record Reviewed: Yes Mental Status Examination - Cognitive Function Orientation: Person, Place, Situation, Time Memory: Intact Attention: WNL Concentration: WNL Association: WNL Fund of Knowledge: WNL - Mood Mood: Neutral - Affect Affect: Broad - Speech Speech: Appropriate - Formal Thought Process Formal Thought Process: No Impairment - Suicidal Ideation Suicidal Ideation: No - Homicidal Ideation Homicidal Ideation: No Goal/Treatment Plan - Goal/Treatment Plan Need for Continued Stay: Discharge may exacerbated symptoms, Severe functional impairment Progress Toward Problem(s) and Goals/Treatment Plan: Librium started for alcohol detox As needed medications Attend groups and activities Supportive therapy and psychoeducation [place] for abstinence CBT for relapse prevention Encourage MAT Refer to rehab or IOP Attend self-help groups as well
[2017-04-11] MEDS: Multiple Vitamins Tab PO SCH (09:43)
[2017-04-11] MEDS ORDERED: Influenza Vaccine 60 mcg/0.5 mL SYR (4YR UP) IM ONE (10:00)
[2017-04-11] MEDS ORDERED: Pneumococcal 23-Valent Vaccine IM ONE (10:00)
--- NOTE | 2017-04-11 10:14 | PCM.PYCHPN ---
Psychiatric Progress Note - Psychiatric Progress Note Patient seen today, length of contact: 16 min Patient Chief Complaint: I am feeling much better Problems Identified/Issues Discussed: Patient seen and evaluated, chart reviewed and discussed with the nurse. The patient reports improvement in his mood and reports improvement in withdrawal symptoms. He still reports anxiety but as per the nurse patient is improving. Patient is scheduled to be discharged tomorrow. He denies any suicidal ideation or homicidal ideation. Patient is taking medications and denies any side effects. Symptoms are improving but needs more time for stabilization. Supportive therapy and psychoeducation were given. Medication Change: Yes (librium taper) Medical Record Reviewed: Yes Mental Status Examination - Cognitive Function Orientation: Person, Place, Situation, Time Memory: Intact Attention: WNL Concentration: WNL Association: WNL Fund of Knowledge: WNL - Mood Mood: Neutral - Affect Affect: Broad - Speech Speech: Appropriate - Formal Thought Process Formal Thought Process: No Impairment - Suicidal Ideation Suicidal Ideation: No - Homicidal Ideation Homicidal Ideation: No Goal/Treatment Plan - Goal/Treatment Plan Need for Continued Stay: Discharge may exacerbated symptoms, Severe functional impairment Progress Toward Problem(s) and Goals/Treatment Plan: Alcohol use d/o- severe Alcohol withdrawal Librium started for alcohol detox As needed medications Attend groups and activities Supportive therapy and psychoeducation [place] for abstinence CBT for relapse prevention Encourage MAT Refer to rehab or IOP Attend self-help groups as well - Smoking Cessation Smoking Cessation Initiated: No
[2017-04-12] MEDS: Multiple Vitamins Tab PO SCH (09:37)
--- NOTE | 2017-04-12 12:34 | PCM.PYCHDC ---
Mental Status Examination - Mental Status Examination Orientation: Person, Place, Situation, Time Memory: Intact Mood: Neutral Affect: Constricted Speech: Soft Attention: WNL Concentration: WNL Association: WNL Fund of Knowledge: WNL Formal Thought Process: No Impairment Description of patient's judgement and insight: god, fair Psychotic Thoughts and Behaviors: denies any AVH Suicidal Ideation: No Current Homicidal Ideation?: No Discharge Summary - Discharge Note Reason for Hospitalization: The pt seen, chart reviewed, case discussed with staff Patient is a 51 year old male. He is single with no children and has no contact with his family. Patient states he currently lives alone. 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 Patient was admitted to detox for alcohol use. Patient states he consumes 5-6 "vodka with juice" drinks daily. This volume began over the past year. Patient reports he noticed a problem with drinking during his early 40s. He states this is his first time at a detox program and wants to get clean. He states he has tried on his own but the withdrawal symptoms are too much for him to handle. He denies any legal issues at this time. His plan after detox is to enter an outpatient program in [place]. Psych Hx: Denies Family Psych Hx: Denies PMH: HTN and hyperlipidemia Consultations:: List each consultation separately and include: 1. Reason for request. 2. Findings. 3. Follow-up Summary of Hospital Course include:: 1. Description of specific treatment plan utilized for patients during their course of treatmen. 2. Summarize the time- course for resolution of acute symptoms and/or regressed behaviors. 3. Describe issues identified and worked on during hospitalization. 4. Describe medication utilized. 5. Describe medical problems identified and treated. 6. Reassessment of suicide risk - Final Diagnosis (DSM 5) Condition upon Discharge: STABLE DSM 5: Alcohol use d/o- severe Alcohol withdrawal Disposition: HOME/ ROUTINE Follow-up Treatment Plan: Alcohol use d/o- severe Alcohol withdrawal Librium started for alcohol detox As needed medications Attend groups and activities Supportive therapy and psychoeducation [place] for abstinence CBT for relapse prevention Encourage MAT Refer to rehab or IOP Attend self-help groups as well Prescriptions/Medication Reconciliation: Gabapentin [Neurontin] 300 mg PO BID #60 cap traZODone [Desyrel] 50 mg PO HS PRN #30 tab PRN Reason: Insomnia
[2017-04-12 12:39] VITALS: BP 118/75; PULSE 92; RESP 20; TEMP 98.4; O2SAT 96
== END 2017-04-12 13:40 | disposition home or self-care (01) | DRG 751 ==
LOC: C.ER 14:20 → C.7D 17:18
PROC: HZ2ZZZZ Detoxification Services for Substance Abuse Treatment (ICD-10-PCS; principal; 2017-04-08)
PROC: HZ52ZZZ Individual Psychotherapy for Substance Abuse Treatment, Cognitive-Behavioral (ICD-10-PCS; 2017-04-08)
PROC: HZ59ZZZ Individual Psychotherapy for Substance Abuse Treatment, Supportive (ICD-10-PCS; 2017-04-08)
PROC: HZ56ZZZ Individual Psychotherapy for Substance Abuse Treatment, Psychoeducation (ICD-10-PCS; 2017-04-08)
PROC: HZ57ZZZ Individual Psychotherapy for Substance Abuse Treatment, Motivational Enhancement (ICD-10-PCS; 2017-04-08)
DX: F10.230 Alcohol dependence with withdrawal, uncomplicated (principal); E78.00 Pure hypercholesterolemia, unspecified; I10 Essential (primary) hypertension; F41.9 Anxiety disorder, unspecified; F32.9 Major depressive disorder, single episode, unspecified

== ENCOUNTER 2017-04-19 17:18 | Emergency (ER) | payer MEDICAID ==
[2017-04-19 17:25] VITALS: BMI 27.4
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
[2017-04-19 18:53] LABS: BASO % 0.6 % (0.0-2.0); EOS % 0.4 % (0.0-4.0); HEMOGLOBIN 14.7 g/dL (12.0-18.0); LYMPH # 1.6 K/uL (1.0-4.3); LYMPH % 31.3 % (20.0-40.0); MEAN CELL VOLUME 90.8 fL (80.0-94.0); MEAN CORPUSCULAR HEMOGLOBIN 31.8 pg (27.0-31.0); MEAN PLATELET VOLUME 7.2 fL (7.2-11.7); MONO # 0.3 K/uL (0.0-0.8); MONO % 6.8 % (0.0-10.0); NEUT # 3.1 K/uL (1.8-7.0); NEUT % 60.9 % (50.0-75.0); NRBC % 0.1 % (0.0-2.0); RBC 4.62 Mil/uL (4.40-5.90); RED CELL DISTRIBUTION WIDTH 15.1 % (11.5-14.5); WHITE BLOOD COUNT 5.1 K/uL (4.8-10.8)
[2017-04-19 19:04] LABS: ACETAMINOPHEN < 10.0 ug/mL (10.0-30.0); SALICYLATE < 1.0 mg/dL 1
[2017-04-19 19:05] LABS: ALB/GLOB RATIO 1.5 (1.0-2.1); ALBUMIN 4.2 g/dL (3.5-5.0); ALT/SGPT 64 U/L (21-72); AST/SGOT 45 U/L (17-59); BLOOD UREA NITROGEN 9 mg/dL (9-20); CALCIUM 8.2 mg/dl (8.6-10.4); GFR AFRICAN-AMERICAN > 60; GFR NON-AFRICAN AMERICAN > 60
[2017-04-19 19:13] LABS: URINE BACTERIA RARE (<OCC); URINE BILIRUBIN NEGATIVE (NEGATIVE); URINE BLOOD NEGATIVE (NEGATIVE); URINE CLARITY Clear (Clear); URINE COLOR Colorless (YELLOW); URINE GLUCOSE (UA) NORMAL (Normal); URINE LEUKOCYTE ESTERASE NEG Leu/uL (Negative); URINE NITRATE NEGATIVE (NEGATIVE); URINE PROTEIN NEGATIVE (NEGATIVE); URINE UROBILINOGEN NORMAL mg/dL (0.2-1.0)
[2017-04-19 19:35] LABS: BARBITURATES, UR NEGATIVE (NEGATIVE); OPIATES, UR NEGATIVE (NEGATIVE); PHENCYCLIDINE, UR NEGATIVE (NEGATIVE)
[2017-04-19 19:36] LABS: BENZODIAZEPINES, UR POSITIVE (NEGATIVE)
[2017-04-19 22:35] VITALS: BP 118/70; PULSE 69; RESP 20; TEMP 98.2; O2SAT 97
--- NOTE | 2017-04-20 08:55 | RAD ---
Chest x-ray single frontal view History: Palpitations. Comparison: 12/09/2016 Findings: Diffuse increased interstitial lung markings which may represent mild edema and or infiltrate. Venous congestion. Tortuous ectatic aorta. Mild cardiomegaly. Degenerative changes in the spine and shoulders. Impression: Diffuse increased interstitial lung markings which may represent mild edema and or infiltrate. Venous congestion. Tortuous ectatic aorta. Mild cardiomegaly.
--- NOTE | 2017-04-25 00:39 | CARD ---
APPROVED REPORT EKG Measurement Heart [id number] [place] 160P33 [id number] <Conclusion> Normal sinus rhythm with sinus arrhythmia Left axis deviation Abnormal ECG
== END 2017-04-19 22:47 | disposition home or self-care (01) ==
LOC: C.ER 17:18
DX: F32.9 Major depressive disorder, single episode, unspecified (principal)

== ENCOUNTER 2017-05-06 18:50 | Emergency (ER) | payer MEDICAID ==
[2017-05-06 18:50] VITALS: BMI 27.4
[2017-05-06] MEDS ORDERED: Aspirin 325 mg EC Tablets PO STA (19:34)
--- NOTE | 2017-05-06 19:34 | C.PDOC ---
History Of Present Illness 51 year old male brought in by ambulance complaining of chest pain after drinking 1 liter of vodka. Pain is described as dull and aching. No fever, chills, nausea, or vomiting. Patient took one baby aspirin prior to arrival. Currently he denies any chest pain. States he drinks daily. Time Seen by Provider: 05/06/17 19:33 Chief Complaint (Nursing): Chest Pain History Per: Patient History/Exam Limitations: no limitations Onset/Duration Of Symptoms: Hrs Current Symptoms Are (Timing): Gone Context: Other (alcohol) Severity: Moderate Pain Scale Rating Of: 4 Quality: Dull, Aching Associated Symptoms: denies: Nausea Exacerbating Factors: None Alleviating Factors: None Recent travel outside of the [place]: No Additional History Per: Patient Past Medical History Reviewed: Historical Data, Nursing Documentation, Vital Signs Vital Signs: Last Vital Signs Temp 98.4 F 05/06/17 22:27 Pulse 84 05/07/17 04:58 Resp 18 05/07/17 04:58 BP 115/70 05/07/17 04:58 Pulse Ox 98 05/07/17 04:58 - Medical History PMH: Anxiety, Depression, HTN, Hypercholesterolemia, Hyperlipidemia Denies: Diabetes, Hepatitis, HIV, Chronic Kidney Disease, Seizures, Sexually Transmitted Disease Surgical History: Appendectomy - [facility] Procedures DETOXIFICATION SERVICES FOR SUBSTANCE ABUSE TREATMENT (04/08/17) INDIV PSYCHOTHERAPY FOR SUBSTANCE ABUSE TREATMENT, SUPPORT (04/08/17) INDIV PSYCHOTHERAPY FOR SUBSTANCE ABUSE, COGNITIV BEHAVIORAL (04/08/17) INDIV PSYCHOTHERAPY FOR SUBSTANCE ABUSE, MOTIVATION ENHANCE (04/08/17) INDIV PSYCHOTHERAPY FOR SUBSTANCE ABUSE, PSYCHOEDUCATION (04/08/17) LAPAROSCOP APPENDECTOMY (10/14/13) Family History: States: No Known Family Hx - Social History Hx Tobacco Use: No Hx Alcohol Use: Yes Hx Substance Use: Yes - Immunization History Hx Tetanus Toxoid Vaccination: Yes Hx Influenza Vaccination: Yes Hx Pneumococcal Vaccination: Yes Review Of Systems Constitutional: Negative for: Fever, Chills Cardiovascular: Positive for: Chest Pain (gone now) Respiratory: Negative for: Shortness of Breath Gastrointestinal: Negative for: Nausea, Vomiting Musculoskeletal: Negative for: Back Pain Skin: Negative for: Rash Neurological: Negative for: Weakness Psych: Negative for: Anxiety Physical Exam - Physical Exam Appears: Non-toxic, No Acute Distress Skin: Warm, Dry Head: Normacephalic Eye(s): bilateral: Normal Inspection Oral Mucosa: Moist Neck: Trachea Midline, Supple Chest: Symmetrical, No Tenderness Cardiovascular: Rhythm Regular Respiratory: No Rales, No Rhonchi, No Wheezing Gastrointestinal/Abdominal: Soft, No Tenderness, No Distention Back: Normal Inspection Extremity: No Pedal Edema Extremity: Bilateral: Atraumatic, No Pedal Edema, Normal Color And Temperature Pulses: Left Dorsalis Pedis: Normal, Right Dorsalis Pedis: Normal Neurological/Psych: Oriented x3, Normal Speech Gait: Steady ED Course And Treatment - Laboratory Results Result Diagrams: 05/06/17 19:40 05/07/17 01:23 ECG: Interpreted By Me, Viewed By Me ECG Rhythm: Sinus Rhythm (85), Nonspecific Changes O2 Sat by Pulse Oximetry: 97 (RA) Pulse Ox Interpretation: Normal - Radiology CXR: Interpreted by Me, Viewed By Me CXR Interpretation: Yes: Other (mild venous congestion). No: Infiltrates, Fracture, Pnemothorax Progress Note: Ordered labs including cardiac enzymes, EKG, and chest x-ray. Patient given 325mg aspirin x1. 20:08 Labs reviewed, potassium low. Given 20 meq potassium chloride. 1am vitals stable, no cp. Reevaluation Time: 05:28 Reassessment Condition: Improved Medical Decision Making Medical Decision Making: I considered the following diagnoses: acute coronary syndrome, pulmonary embolism, lower respiratory infection, aortic dissection/aneurysm, pneumothorax , pericarditis, esophagitis/GERD, zoster and esophageal rupture but found them to be unlikely based on the history, physical exam, and diagnostics. My conclusions regarding the unlikely diagnoses were based on: the absence of significant EKG abnormalities, the lack of suggestive x-ray findings, the absence of significant abnormalities on cardiac monitoring, the absence of asymmetric pulses, Disposition Counseled Patient/Family Regarding: Studies Performed, Diagnosis, Need For Followup - Disposition Referrals: [facility] [Outside] Disposition: HOME/ ROUTINE Disposition Time: 19:34 Condition: FAIR Instructions: Alcohol Intoxication (DC), Chest Pain (DC) Forms: [email or web address] ([place] Islander) - Clinical Impression Clinical Impression: Chest pain, Alcohol intoxication - Scribe Statement The provider has reviewed the documentation as recorded by the Scribe (Cristina Bowles) Provider Attestation: All medical record entries made by the Scribe were at my direction and personally dictated by me. I have reviewed the chart and agree that the record accurately reflects my personal performance of the history, physical exam, medical decision making, and the department course for this patient. I have also personally directed, reviewed, and agree with the discharge instructions and disposition.
[2017-05-06] MEDS ORDERED: Aspirin 325 mg EC Tablets PO ONE (19:42)
[2017-05-06 19:48] LABS: BASO % 0.7 % (0.0-2.0); EOS % 0.4 % (0.0-4.0); LYMPH # 1.1 K/uL (1.0-4.3); LYMPH % 27.2 % (20.0-40.0); MEAN CELL VOLUME 91.4 fL (80.0-94.0); MEAN CORPUSCULAR HEMOGLOBIN 32.4 pg (27.0-31.0); MEAN CORPUSCULAR HGB CONC 35.4 g/dL (33.0-37.0); MEAN PLATELET VOLUME 7.6 fL (7.2-11.7); MONO # 0.6 K/uL (0.0-0.8); MONO % 15.4 % (0.0-10.0); NEUT # 2.3 K/uL (1.8-7.0); NEUT % 56.3 % (50.0-75.0); NRBC % 0.1 % (0.0-2.0); RBC 4.02 Mil/uL (4.40-5.90); RED CELL DISTRIBUTION WIDTH 15.5 % (11.5-14.5)
[2017-05-06 19:54] LABS: URINE BACTERIA RARE (<OCC); URINE BILIRUBIN NEGATIVE (NEGATIVE); URINE BLOOD NEGATIVE (NEGATIVE); URINE CLARITY Clear (Clear); URINE COLOR Straw (YELLOW); URINE GLUCOSE (UA) NORMAL (Normal); URINE LEUKOCYTE ESTERASE NEG Leu/uL (Negative); URINE NITRATE NEGATIVE (NEGATIVE); URINE PROTEIN NEGATIVE (NEGATIVE); URINE UROBILINOGEN NORMAL mg/dL (0.2-1.0)
[2017-05-06 19:58] LABS: INR 0.9; PROTHROMBIN TIME 9.6 SECONDS (9.7-12.2)
[2017-05-06 20:06] LABS: BARBITURATES, UR NEGATIVE (NEGATIVE); BENZODIAZEPINES, UR NEGATIVE (NEGATIVE); OPIATES, UR NEGATIVE (NEGATIVE); PHENCYCLIDINE, UR NEGATIVE (NEGATIVE)
[2017-05-06 20:06] LABS: ALB/GLOB RATIO 1.5 (1.0-2.1); ALBUMIN 4.1 g/dL (3.5-5.0); ALT/SGPT 73 U/L (21-72); AST/SGOT 155 U/L (17-59); BLOOD UREA NITROGEN 10 mg/dL (9-20); CALCIUM 8.5 mg/dl (8.6-10.4); GFR AFRICAN-AMERICAN > 60; GFR NON-AFRICAN AMERICAN > 60
[2017-05-06] MEDS ORDERED: Potassium Chloride 10 mEq ER Tab PO STA (20:08)
[2017-05-06] MEDS ORDERED: Potassium Chloride 20 mEq ER Tab PO ONE (20:24)
[2017-05-07 01:39] LABS: BLOOD UREA NITROGEN 9 mg/dL (9-20); CALCIUM 8.2 mg/dl (8.6-10.4); GFR AFRICAN-AMERICAN > 60; GFR NON-AFRICAN AMERICAN > 60
[2017-05-07] MEDS ORDERED: Potassium Chloride 10 mEq ER Tab PO STA (01:50)
[2017-05-07 01:51] LABS: CK-MB 0.81 ng/mL (0.0-3.38)
[2017-05-07] MEDS ORDERED: Potassium Chloride 10 mEq ER Tab PO ONE (02:09)
[2017-05-07] MEDS ORDERED: Potassium Chloride 20 mEq ER Tab PO ONE (02:09)
[2017-05-07 04:02] VITALS: RESP 18
[2017-05-07 04:59] VITALS: PULSE 84
[2017-05-07 06:03] VITALS: BP 127/65; TEMP 98.5; O2SAT 99
--- NOTE | 2017-05-07 08:32 | RAD ---
Chest x-ray single frontal view History: Chest pain. Comparison: 12/09/2016 Findings: Mild venous congestion. Right hilar prominence. Heart size within normal limits. Impression: No focal infiltrate or effusion.
--- NOTE | 2017-05-09 12:26 | CARD ---
APPROVED REPORT EKG Measurement Heart [id number] 148P33 [id number] <Conclusion> Normal sinus rhythm Left axis deviation Abnormal ECG
== END 2017-05-07 06:03 | disposition home or self-care (01) ==
LOC: C.ER 18:50
DX: R07.9 Chest pain, unspecified (principal); F10.129 Alcohol abuse with intoxication, unspecified; Y90.8 Blood alcohol level of 240 mg/100 ml or more; I10 Essential (primary) hypertension; E78.00 Pure hypercholesterolemia, unspecified

== ENCOUNTER 2017-07-13 14:40 | Inpatient (IN) | payer MEDICAID ==
[2017-07-13 14:48] VITALS: BMI 26.1
[2017-07-13 15:52] LABS: BASO % 0.3 % (0.0-2.0); EOS % 0.4 % (0.0-4.0); HEMOGLOBIN 14.9 g/dL (12.0-18.0); LYMPH # 0.7 K/uL (1.0-4.3); LYMPH % 11.2 % (20.0-40.0); MEAN CELL VOLUME 94.5 fL (80.0-94.0); MEAN CORPUSCULAR HEMOGLOBIN 32.6 pg (27.0-31.0); MEAN CORPUSCULAR HGB CONC 34.5 g/dL (33.0-37.0); MEAN PLATELET VOLUME 8.6 fL (7.2-11.7); MONO # 0.6 K/uL (0.0-0.8); MONO % 9.8 % (0.0-10.0); NEUT # 4.9 K/uL (1.8-7.0); NEUT % 78.3 % (50.0-75.0); RBC 4.56 Mil/uL (4.40-5.90); RED CELL DISTRIBUTION WIDTH 14.6 % (11.5-14.5); WHITE BLOOD COUNT 6.3 K/uL (4.8-10.8)
[2017-07-13 16:08] LABS: URINE BACTERIA RARE (<OCC); URINE BILIRUBIN NEGATIVE (NEGATIVE); URINE BLOOD NEGATIVE (NEGATIVE); URINE CLARITY Clear (Clear); URINE COLOR Yellow (YELLOW); URINE GLUCOSE (UA) NORMAL (Normal); URINE LEUKOCYTE ESTERASE 2+ Leu/uL (Negative); URINE PROTEIN NEGATIVE (NEGATIVE); URINE UROBILINOGEN NORMAL mg/dL (0.2-1.0)
[2017-07-13 16:13] LABS: ALB/GLOB RATIO 1.2 (1.0-2.1); ALBUMIN 4.8 g/dL (3.5-5.0); ALT/SGPT 57 U/L (21-72); AST/SGOT 72 U/L (17-59); BLOOD UREA NITROGEN 19 mg/dL (9-20); CALCIUM 9.3 mg/dl (8.6-10.4); GFR AFRICAN-AMERICAN > 60; GFR NON-AFRICAN AMERICAN > 60
[2017-07-13 16:28] LABS: BARBITURATES, UR NEGATIVE (NEGATIVE); OPIATES, UR NEGATIVE (NEGATIVE); PHENCYCLIDINE, UR NEGATIVE (NEGATIVE)
[2017-07-13 16:29] LABS: BENZODIAZEPINES, UR POSITIVE (NEGATIVE)
[2017-07-13] MEDS ORDERED: Potassium Chloride 20 mEq ER Tab PO STA (16:30)
--- NOTE | 2017-07-13 16:52 | C.PDOC ---
History Of Present Illness Pt is here requesting detox from Alcohol Time Seen by Provider: 07/13/17 14:51 Chief Complaint (Nursing): Substance Abuse History Per: Patient Onset/Duration Of Symptoms: Days Current Symptoms Are (Timing): Still Present Suicide/Self Injury Attempted (Context): None Modifying Factor(s): Alcohol Severity: Moderate Associated Symptoms: denies: Suicidal Thoughts, Suicidal Plan Additional History Per: Prior Records Past Medical History Reviewed: Historical Data, Nursing Documentation, Vital Signs Vital Signs: Last Vital Signs Temp 98.1 F 07/13/17 14:50 Pulse 107 H 07/13/17 14:50 Resp 19 07/13/17 14:50 BP 121/82 07/13/17 14:50 Pulse Ox 97 07/13/17 14:50 - Medical History PMH: Anxiety, Depression, HTN, Hypercholesterolemia, Hyperlipidemia Other PMH: Alcohol abuse Surgical History: Appendectomy - [facility] Procedures DETOXIFICATION SERVICES FOR SUBSTANCE ABUSE TREATMENT (04/08/17) INDIV PSYCHOTHERAPY FOR SUBSTANCE ABUSE TREATMENT, SUPPORT (04/08/17) INDIV PSYCHOTHERAPY FOR SUBSTANCE ABUSE, COGNITIV BEHAVIORAL (04/08/17) INDIV PSYCHOTHERAPY FOR SUBSTANCE ABUSE, MOTIVATION ENHANCE (04/08/17) INDIV PSYCHOTHERAPY FOR SUBSTANCE ABUSE, PSYCHOEDUCATION (04/08/17) LAPAROSCOP APPENDECTOMY (10/14/13) Family History: States: Unknown Family Hx - Social History Hx Tobacco Use: No Hx Alcohol Use: Yes Hx Substance Use: Yes (xanax) - Immunization History Hx Tetanus Toxoid Vaccination: No Hx Influenza Vaccination: No Hx Pneumococcal Vaccination: No Review Of Systems Except As Marked, All Systems Reviewed And Found Negative. Constitutional: Negative for: Fever Cardiovascular: Negative for: Chest Pain Respiratory: Negative for: Shortness of Breath Gastrointestinal: Negative for: Vomiting, Abdominal Pain Musculoskeletal: Negative for: Neck Pain Skin: Negative for: Rash Neurological: Negative for: Weakness, Numbness, Seizures Psych: Negative for: Psychosis Physical Exam - Physical Exam Appears: Non-toxic, Other (Mildly tremulous) Skin: Normal Color, Warm, Dry Head: Atraumatic, Normacephalic Eye(s): bilateral: PERRL, EOMI Neck: Normal ROM, Supple Cardiovascular: Rhythm Regular Respiratory: Normal Breath Sounds, No Accessory Muscle Use Gastrointestinal/Abdominal: Soft, No Tenderness Back: No CVA Tenderness Extremity: Normal ROM Neurological/Psych: Oriented x3, Normal Cognition, Normal Motor, Normal Sensation ED Course And Treatment - Laboratory Results Result Diagrams: 07/13/17 15:47 07/13/17 15:47 O2 Sat by Pulse Oximetry: 97 Pulse Ox Interpretation: Normal Progress Note: Pt is medically stable for detox admission. Disposition Counseled Patient/Family Regarding: Studies Performed, Diagnosis - Disposition Disposition: HOSPITALIZED Disposition Time: 16:52 Condition: STABLE - Clinical Impression Clinical Impression: Alcohol dependence Decision To Admit - Pt Status Changed To: Hospital Disposition Of: Inpatient - Admit Certification Admit to Inpatient:: After my assessment, the patient will require hospitalization for at least two midnights. This is because of the severity of symptoms shown, intensity of services needed, and/or the medical risk in this patient being treated as an outpatient. - InPatient: Physician Admission Certification: I certify that this patient requires 2 or more midnights of care for the following reason:: Detox. - . Bed Request Type: Detox Admitting Physician: Maris Gunderson Patient Diagnosis: Alcohol dependence
[2017-07-13] MEDS ORDERED: Potassium Chloride 20 mEq ER Tab PO ONE (16:56)
--- NOTE | 2017-07-13 17:24 | PCM.BM ---
<Mari Zhu - Last Filed: 07/13/17 17:23> Treatment Plan Problems - Problems identified on initial assessmt potiential for autonomic instability related to alcohol withdrawal Date Initiated: 07/13/17 Time Initiated: 17:24 Assessment reference: NA Status: Active Treatment assets and liabiliti Patient Assests: cooperative, ADL independent, good support system, cognitively intact Patient Liabilities: substance abuse, medical problems - Milieu Protocol Maintain good personal hygiene: daily Encourage regular showers, daily Remind patient to perform daily oral care, daily Assist patient to perform ADL's Maintain personal safety: every shift Educate patient to report safety concerns to staff, every shift Monitor environment for contraband/sharps Medication safety: Monitor for expected outcome, potential side effects: every shift, Assess barriers to learning: every shift, Assess readiness for medication education: every shift <Maris Gunderson - Last Filed: 07/14/17 11:53> - Diagnosis (1) Alcohol dependence Status: Acute Interventions: 07/14/17 11:53 * Assess 7x/week regarding severity of withdrawal * Educate regarding risks, benefits, side effects and alternatives of medications * Use Motivational Interviewing for abstinence * Use CBT for relapse prevention * Medication management for withdrawal symptoms * Encourage medication assisted treatment * <Ria Veras - Last Filed: 07/16/17 08:05> Family Contact Family involvement: Fadumo/SO not involved - Goals for Treatment Patient goals for treatment: Complete detox and transition to IOP. Discharge/Continuing Care - Education Needs Education Needs: Patient Medication, Patient Diagnosis/Disease Process, Patient Coping Skills, Patient Anger Management skills, Patient Placement options, Patient Community resources - Discharge Discharge Criteria: No longer exhibiting s/s of withdrawal, Reduction of target symptoms Discharge to:: Home - Treatment Team Participation Patient/Family/SO Statement: 07/16/17 08:05 "I wanna go IOP at [facility] after this..." Discussed with Family/SO: No Was Patient/Family/SO present at Treatment Team Meeting: Yes
[2017-07-14 09:00] LABS: BLOOD UREA NITROGEN 20 mg/dL (9-20)
[2017-07-14 09:01] LABS: ALB/GLOB RATIO 1.3 (1.0-2.1); ALBUMIN 3.9 g/dL (3.5-5.0); ALT/SGPT 52 U/L (21-72); AST/SGOT 61 U/L (17-59); CALCIUM 8.6 mg/dl (8.6-10.4); GFR AFRICAN-AMERICAN > 60; GFR NON-AFRICAN AMERICAN > 60
[2017-07-14] MEDS: Multiple Vitamins Tab PO SCH (10:07)
--- NOTE | 2017-07-14 10:19 | PCM.PSYCH ---
Initial Psychiatric Evaluation - Initial Psychiatric Evaluation Type of Admission: Voluntary Legal Status: Capacity Chief Complaint (in patient's own words): "Alcohol" History of Present Illness and Precipitating Events: The pt seen, chart reviewed, case discussed with staff. He is known from previous admission. Patient is a 51 year old male. He is single with no children and has no contact with his family. Patient states he currently lives with a room mate. 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 Patient was admitted to detox for alcohol use. Patient states he consumes 1 lt vodka daily. This volume began over the past year. Patient reports he noticed a problem with drinking during his early 40s. He states this is his first time at a detox program and wants to get clean. He states he has tried on his own but the withdrawal symptoms are too much for him to handle. He denies any legal issues at this time. His plan after detox is to enter an outpatient program in [place]. However, he admits to not going to [facility] after last time b/c the sign painter helper was "heriberto." Psych Hx: Denies Family Psych Hx: Denies PMH: HTN and hyperlipidemia Current Medications: Active Medications Generic Name Dose Route Start Last Admin Trade Name Freq PRN Reason Stop Dose Admin Chlordiazepoxide 25 mg 07/13/17 20:00 Librium PO Q4H PRN Alcohol Withdrawal Chlordiazepoxide 50 mg 07/14/17 10:00 07/14/17 10:07 Librium PO 07/19/17 09:59 50 mg Q6H ADRIA Administration Taper Clonidine HCl 0.1 mg 07/13/17 20:00 Catapres PO Q4H PRN Symptoms of alcohol withdrawl Folic Acid 1 mg 07/14/17 10:00 07/14/17 10:07 Folic Acid PO 1 mg DAILY ADRIA Administration Gabapentin 300 mg 07/13/17 20:15 07/14/17 10:07 Neurontin PO 300 mg BID ADRIA Administration Hydroxyzine HCl 25 mg 07/13/17 20:03 Atarax PO Q4H PRN Anxiety Ibuprofen 600 mg 07/13/17 20:03 Motrin Tab PO Q6H PRN Pain, moderate (4-7) Multivitamins 1 tab 07/14/17 10:00 07/14/17 10:07 Hexavitamin PO 1 tab DAILY ADRIA Administration Thiamine HCl 100 mg 07/13/17 21:00 07/13/17 21:21 Vitamin B1 Tab PO 100 mg DAILY ADRIA Administration Trazodone HCl 100 mg 07/13/17 20:00 07/13/17 21:21 Desyrel PO 100 mg HS PRN Administration Insomnia Past Psychiatric History - Past Psychiatric History Previous Treatment History: None Pertinent Medical Hx (Current Medical&Sleep Prob, Allergies): Allergies Allergy/AdvReac Type Severity Reaction Status Date / Time Penicillins Allergy RASH Verified 07/13/17 14:45 Losartan [Cozaar] 50 mg PO DAILY #0 07/08/15 Hydrochlorothiazide [Microzide] 12.5 mg PO DAILY 12/09/16 LORazepam [Ativan] 1 mg PO DAILY 07/13/17 Potassium Chloride [K-Dur 20] 20 meq PO DAILY 07/13/17 Pravastatin Sodium [Pravachol] 20 mg PO HS 07/13/17 Review of Systems - Neurological Neurological: UNREMARKABLE - Psychiatric Psychiatric: Abnormal Sleep Pattern, Anxiety, Irritability. absent: Depression , Hallucinations, Homicidal Ideation, Paranoia, Suicidal Ideation Mental Status Examination - Personal Presentation Personal Presentation: Looks stated age - Affect Affect: Constricted - Motor Activity Motor Activity: Calm - Reliability in Providing Information Reliability in Providing Information: Good - Speech Speech: Organized - Mood Mood: Anxious - Formal Thought Process Formal Thought Process: No Impairment - Cognitive Functions Orientation: Person, Place, Situation, Time Sensorium: Alert Attention/Concentration: Attentive Estimate of Intelligence: Average Judgement: Intact, as evidence by: Insight regarding need for hospitalization Memory: Recent intact, as evidence by: Ability to recall events of the day, Remote intact, as evidenced by: Abilit to recall sig. life events - Risk Risk: Withdrawal, Diminished functioning - Strength & Assets Inventory Strength & Assets Inventory: Cooperative - Limitations Limitations: Living alone DSM 5 DX - DSM 5 DSM 5 Diagnosis: Alcohol withdrawal Alcohol use d/o- severe - Recommended/Plan of Treatment Treatment Recommendations and Plan of Treatment: Taper with librium Gabapentin for augmentation if needed As needed medications All risks, benefits and alternatives of the meds discussed, and the pt agreed and understood. Attend groups and activities Supportive therapy and psychoeducation MN for abstinence CBT for relapse prevention Encourage MAT Refer to rehab or IOP, and self-help groups Smoking cessation with MN Nicotine patch if needed 34 min Projected ELOS: 5 days Prognosis: good w treatment - Smoking Cessation Smoking Cessation Initiated: Yes
[2017-07-15] MEDS: Multiple Vitamins Tab PO SCH (09:20)
--- NOTE | 2017-07-15 14:07 | PCM.PYCHPN ---
Psychiatric Progress Note - Psychiatric Progress Note Patient seen today, length of contact: 15 minutes Patient Chief Complaint: "I am feeling okay." Problems Identified/Issues Discussed: The pt is seen, chart reviewed, case discussed with staff. Patient states is sleeping okay. He states his mood is good. He states he still feels "shaky." Support given, CBT and KS used briefly No new symptoms reported, improving slowly and needs more time No SEs from medications, risks discussed. After care discussed Medication Change: Yes (inderal to be added, risks discussed) Medical Record Reviewed: Yes Mental Status Examination - Cognitive Function Orientation: Person, Place, Situation, Time Memory: Intact Attention: WNL Concentration: WNL Association: WNL Fund of Knowledge: WNL - Mood Mood: Neutral - Affect Affect: Flat - Speech Speech: Appropriate - Formal Thought Process Formal Thought Process: No Impairment - Suicidal Ideation Suicidal Ideation: No - Homicidal Ideation Homicidal Ideation: No Goal/Treatment Plan - Goal/Treatment Plan Need for Continued Stay: Discharge may exacerbated symptoms Progress Toward Problem(s) and Goals/Treatment Plan: Continue with librium taper Support and psychoeducation daily Attend groups and activities daily After care planning by ROXY
[2017-07-16] MEDS: Multiple Vitamins Tab PO SCH (09:16)
[2017-07-16] MEDS ORDERED: Potassium Chloride 20 mEq ER Tab PO SCH (10:00)
--- NOTE | 2017-07-16 11:47 | PCM.PYCHPN ---
Psychiatric Progress Note - Psychiatric Progress Note Patient seen today, length of contact: 15 minutes Patient Chief Complaint: "I am doing okay." Problems Identified/Issues Discussed: The pt is seen, chart reviewed, case discussed with staff. Patient states is sleeping well. He is still having some tremors. He states his mood is good. Support given, CBT and PA used briefly No new symptoms reported, improving slowly and needs more time No SEs from medications, risks discussed. Medication Change: Yes (inderal to be added, risks discussed) Medical Record Reviewed: Yes Mental Status Examination - Cognitive Function Orientation: Person, Place, Situation, Time Memory: Intact Attention: WNL Concentration: WNL Association: WNL Fund of Knowledge: WNL - Mood Mood: Neutral - Affect Affect: Flat - Speech Speech: Soft - Formal Thought Process Formal Thought Process: No Impairment - Suicidal Ideation Suicidal Ideation: No - Homicidal Ideation Homicidal Ideation: No Goal/Treatment Plan - Goal/Treatment Plan Need for Continued Stay: Discharge may exacerbated symptoms Progress Toward Problem(s) and Goals/Treatment Plan: Continue with librium taper Add Inderal 20mg TID Support and psychoeducation daily Attend groups and activities daily After care planning by ROXY
[2017-07-16 12:53] VITALS: RESP 18
[2017-07-16 16:09] VITALS: BP 127/90; PULSE 59; TEMP 98.4; O2SAT 97
--- NOTE | 2017-07-16 22:29 | PCM.PYCHDC ---
Mental Status Examination - Mental Status Examination Orientation: Person, Place, Situation, Time Memory: Intact Mood: Anxious Affect: Constricted Speech: Appropriate Attention: WNL Concentration: WNL Association: WNL Fund of Knowledge: WNL Formal Thought Process: No Impairment Suicidal Ideation: No Current Homicidal Ideation?: No Discharge Summary - Discharge Note Reason for Hospitalization: Alcohol detox Consultations:: List each consultation separately and include: 1. Reason for request. 2. Findings. 3. Follow-up Summary of Hospital Course include:: 1. Description of specific treatment plan utilized for patients during their course of treatmen. 2. Summarize the time- course for resolution of acute symptoms and/or regressed behaviors. 3. Describe issues identified and worked on during hospitalization. 4. Describe medication utilized. 5. Describe medical problems identified and treated. 6. Reassessment of suicide risk Summary of Hospital Course: The pt seen, chart reviewed, case discussed with staff. He is known from previous admission. On admission: Patient is a 51 year old h[place] male. He is single with no children and has no contact with his family. Patient states he currently lives with a room mate. 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 Patient was admitted to detox for alcohol use. Patient states he consumes 1 lt vodka daily. This volume began over the past year. Patient reports he noticed a problem with drinking during his early 40s. He states this is his first time at a detox program and wants to get clean. He states he has tried on his own but the withdrawal symptoms are too much for him to handle. He denies any legal issues at this time. His plan after detox is to enter an outpatient program in [place]. However, he admits to not going to [facility] after last time b/c the secretary receptionist was "rude." Psych Hx: Denies Family Psych Hx: Denies PMH: HTN and hyperlipidemia Hospital course: The pt was admitted and started on treatment with psychotherapy, support, psychoeducation and medications. CO and CBT used. The pt attended groups and activities, as well as milieu therapy. All the risks and benefits of medications are discussed and the patient understood and agreed. The pt improved with the treatments provided. After care discussed with the patient. He was interested in IOP b/c he had to work Today, however, he suddenly asked to leave [place] - with a made-up sounding excuse re his landlord. He was observed to befriend a male patient a lot and they left together. Outsole Cementer Machine explained the risks of leaving AMA, ie seizures, relapse and even but he still left. - Diagnosis (1) Alcohol dependence Status: Acute - Final Diagnosis (DSM 5) Condition upon Discharge: STABLE Disposition: AGAINST MEDICAL ADVICE Follow-up Treatment Plan: Use relapse prevention skills Return to ER or call 911 if suicidal, homicidal or symptoms relapse. Stay away from stress, alcohol and drugs. See primary doctor regularly and get labs. - Smoking Cessation Smoking Cessation Medication prescribed: No - Antipsychotic Medications Pt discharged on 2 or more routine antipsychotic medications: No
== END 2017-07-16 17:57 | disposition left against medical advice (07) | DRG 749 ==
LOC: C.ER 14:40 → C.7D 16:53
PROVIDERS: ADMIT Psychiatry & Neurology Psychiatry; ATTEND Psychiatry & Neurology Psychiatry
DX: F10.239 Alcohol dependence with withdrawal, unspecified (principal); I10 Essential (primary) hypertension; E78.5 Hyperlipidemia, unspecified; F19.10 Other psychoactive substance abuse, uncomplicated